=== PATIENT | male | born 1990 | race Caucasian/White ===

== ENCOUNTER 2023-10-03 05:39 | Emergency (ER) | payer OTHER, SELFPAY ==
[2023-10-03] VITALS (7 sets, daily range): BP systolic 124–154; BP diastolic 66–97; PULSE 72–84; RESP 15–16; TEMP 36.2–36.7; O2SAT 95–99; BMI 27.1
--- NOTE | 2023-10-03 06:09 | RAD_ITS ---
STUDY: X-RAY - RIGHT FEMUR REASON FOR STUDY: Male, 33 years old. ? osteo TECHNIQUE: 4 view(s) of the femur. COMPARISON: None. FINDINGS: Normal visualized femur. Soft tissue swelling. Linear lucencies are seen within the soft tissues. Possibility of necrotizing fasciitis should be ruled out. RAD/Femur Min 2 Views IMPRESSION: Soft tissue swelling with linear hypodensities in the soft tissues suggestive of possible necrotizing fasciitis. N.B. : The above Results were Read Back by Sebastián Martel MD to Stepan Chang DO, and understanding confirmed on 10/03/2023 08:04:40 (ET). Electronically Signed: Sebastián Martel MD at 8:05 EDT ,
[2023-10-03 06:43] LABS: Absolute Lymphocyte Count 0.92 X10^3/uL (0.83-4.51); Absolute Neutrophil Count 1.6 X10^3/uL (2.0-7.7); Basophil# 0.03 X10^3/uL; Eosinophil# 0.12 X10^3/uL; Eosinophils% 3.9 % (0-5); Hematocrit 44.3 % (40-54); Hemoglobin 15.1 g/dL (13.0-16.5); Lymphocyte # 0.92 X10^3/ul (0.83-4.51); Lymphocyte % 30.3 % (19-41); Mean Corp Hgb Conc 34.1 g/dL (32-36); Mean Corpuscular Hgb 31.4 pg (27.0-32.0); Mean Corpuscular Volume 92.1 fL (80-94); Mean Platelet Vol. 9.7 fl (6.2-12.0); Monocyte# 0.36 X10^3/uL; Monocyte% 11.8 % (0-10); NRBC Flagged by Analyzer 0 % (0-5); Neutrophil % 52.7 % (47-70); Platelet Count 207 K/mm3 (150-450); RBC Distribution Width CV 11.4 % (11.6-14.6); RBC Distribution Width SD 38.9 fl (35.1-43.9); Red Blood Count 4.81 M/mm3 (4.6-6.2)
[2023-10-03 06:51] LABS: Anion Gap 8 (5-15); BUN 13 mg/dL (7-18); BUN/Creat Ratio 11.9 RATIO (10-20); Calcium,Total 9.2 mg/dL (8.5-10.1); Chloride 105 mmol/L (98-107); Creatinine, Serum 1.09 mg/dL (0.70-1.30); EST Glomerular Filtration Rate 83 mL/min (>60); Est Glom Filt Rate - Afr Amer 100 mL/min (>60); Estimated Creatinine Clearance 108.94 ml/min; Glucose 101 mg/dL (74-106); Potassium 3.9 mmol/L (3.5-5.1); Sodium Level 139 mmol/L (136-145)
[2023-10-03 07:10] LABS: Lactic Acid 0.8 mmol/L (0.4-1.9)
--- NOTE | 2023-10-03 07:33 | EX.ED.DYSGE1 ---
HPI History of Present Illness Chief Complaint: Wound Check Informant: patient Narrative Narrative: Patient is a 33-year-old male with no significant past medical history. [place] and after doing so noticed a small lesion along his right posterior thigh. He states that the area began increasing in size and redness and a concern for infection so he went to an urgent care and was placed on Bactrim and Keflex. He states has been taking those for 3 days but despite doing so the redness and swelling has increased. He denies any fevers or chills or discharge from the wound but states with concern for worsening infection he comes in for evaluation [facility] Medical History no medical history no medical history Home Medications ?Medication ?Instructions ?Recorded ?Last Taken ?Type cephalexin 500 mg capsule 500 mg PO TID 10/03/23 Unknown History levofloxacin 500 mg tablet 500 mg PO DAILY 10 days #10 tabs 10/03/23 Unknown Rx sulfamethoxazole 800 1 tab PO BID 10/03/23 Unknown History mg-trimethoprim 160 mg tablet sulfamethoxazole 800 1 tab PO BID 7 days #14 tabs 10/03/23 Unknown Rx mg-trimethoprim 160 mg tablet (Bactrim DS) Allergy/AdvReac Type Severity Reaction Status Date / Time cefaclor (From [facility]) AdvReac Other Verified 10/03/23 05:42 Social History Smoking Status: Never smoker [facility] ED Constitutional Constitutional ED: Denies chills or fever(s) ENT ENT ED: Denies sore throat Cardiovascular Cardiovascular: Denies chest pain Respiratory/Chest Respiratory/Chest: Denies cough or dyspnea Gastrointestinal Gastrointestinal: Denies abdominal pain, diarrhea, nausea or vomiting Genitourinary Genitourinary ED: Denies dysuria Musculoskeletal Musculoskeletal: Reports other Details: Positive right thigh pain Integumentary Reports other Details: Positive redness right thigh Neurologic Neurologic: Denies headache(s) Hematologic/Lymphatic Hematologic/Lymphatic: Denies easy bleeding or easy bruising EXAM Physical Exam Const Vital Signs: 10/03/23 05:40 10/03/23 05:46 10/03/23 07:00 Temperature 97.6 F L 97.6 F L 97.1 F L Temperature Source Temporal Temporal Temporal Pulse Rate 79 79 74 Respiratory Rate 16 16 16 Blood Pressure 154/97 H 154/97 H 146/84 H Blood Pressure Mean 116 116 104 Pulse Ox 99 99 95 Oxygen Delivery Method Room Air Room Air Room Air 10/03/23 08:00 Temperature 97.4 F L Temperature Source Temporal Pulse Rate 78 Respiratory Rate 16 Blood Pressure 132/77 H Blood Pressure Mean 95 Pulse Ox 98 Oxygen Delivery Method Room Air Positive well nourished and well developed General Appearance ED: well developed HEENT HEENT Narrative: Normocephalic atraumatic Eyes PERRL and EOMs intact bilaterally Neck supple Resp normal respiratory effort and clear to auscultation bilaterally Cardio regular rate and regular rhythm Extremity Extremity Narrative: Right lower extremity is neurovascularly intact. Along the posterior aspect of the distal right thigh is a asymmetric area of erythema warmth and swelling approximately 3 x 3 cm in size with the center having an area of tissue breakdown. There is no active drainage or discharge or lymphangitic streaking No crepitance palpated Neuro oriented x3, CN's II-XII intact bilaterally and no sensory deficits noted Sensorium / Orientation: alert Motor Exam: strength 5/5 throughout Psych mental status grossly normal Skin Skin Narrative: Soft tissue change of the right posterior thigh as documented above MDM MDM MDM Narrative Medical decision making narrative: Patient presented to the ER hypertensive otherwise with stable vitals. He reported developing a lesion along his right thigh after being in [place]. Differential diagnosis is for insect bite versus allergic reaction versus cellulitis versus abscess. As he has been on antibiotics and still has worsening of symptoms there is concern for progression to systemic infection. Therefore basic blood work and an x-ray of the right leg were obtained. Labs show leukopenia pi?a at 3.0 and neutropenia at 1.6. Patient does not have any history immunosuppression or use of immunosuppressive drugs so therefore this drop is atypical. The x-ray read by the radiologist question potential free air which could be potentially necrotizing fasciitis. Patient blood cultures obtained and was started on vancomycin but a CT of the lower extremity will be obtained to check for true presence of air and necrotizing fasciitis. CT revealed no signs of necrotizing fasciitis. The case was discussed with the hospitalist/Dr. Best. She feels that with normal vitals and no systemic symptoms that patient can stop the Keflex and be transition to Levaquin but continue the Bactrim. She agrees that we can track the cultures as an outpatient initially and he can return if cultures are positive or symptoms worsen despite antibiotic therapy. This plan of care was discussed with the patient he is agreeable to it History & Record Review Discussion w/independent historian: Patient Lab Data Attestation: I reviewed the patient's lab results. Labs: Laboratory Results - last 24 hr 10/03/23 06:21 WBC 3.0 L RBC 4.81 Hgb 15.1 Hct 44.3 MCV 92.1 MCH 31.4 MCHC 34.1 RDW Std Deviation 38.9 RDW Coeff of Claribel 11.4 L Plt Count 207 MPV 9.7 Immature Gran % (Auto) 0.300 Neut % (Auto) 52.7 Lymph % (Auto) 30.3 Parke % (Auto) 11.8 H Eos % (Auto) 3.9 Baso % (Auto) 1.0 Absolute Neuts (auto) 1.6 L Absolute Lymphs (auto) 0.92 Nucleated RBC % 0 Sodium 139 Potassium 3.9 Chloride 105 Carbon Dioxide 26.0 Anion Gap 8 BUN 13 Creatinine 1.09 Estim Creat Clear Calc 108.94 Est GFR (MDRD) Af Amer 100 Est GFR (MDRD) Non-Af 83 BUN/Creatinine Ratio 11.9 Glucose 101 Lactic Acid 0.8 Calcium 9.2 C-React Prot Ext Range 43.70 H Radiography Diagnostic Testing: Clinical Impression(s) from Imaging Studies Femur X-Ray 10/03/23 06:09 IMPRESSION: Soft tissue swelling with linear hypodensities in the soft tissues suggestive of possible necrotizing fasciitis. N.B. : The above Results were Read Back by Sebastián Martel MD to Stepan Chang DO, and understanding confirmed on 10/03/2023 08:04:40 (ET). Electronically Signed: Sebastián Martel MD at 8:05 EDT , ADDENDUM: 10/03/23 0812 IMPRESSION: Soft tissue swelling with linear hypodensities in the soft tissues suggestive of possible necrotizing fasciitis. N.B. : The above Results were Read Back by Sebastián Martel MD to Stepan Chang DO, and understanding confirmed on 10/03/2023 08:04:40 (ET). Electronically Signed: Sebastián Martel MD at 8:05 EDT , Lower Extremity CT 10/03/23 08:15 IMPRESSION: There is no radiographic evidence for necrotizing fasciitis. The lucency seen on the plain radiograph represents the fatty planes within the muscle groups. Electronically Signed: Sebastián Martel MD at 8:33 EDT , X-ray of the right femur as interpreted by the emergency medicine physician reveals no retained foreign body or signs of osteomyelitis Discharge Plan Triage Chief Complaint: Wound Check ED Provider: Stepan Chang Dx/Rx/DC Orders Clinical Impression: Cellulitis of right thigh, Leukopenia, Neutropenia Instructions: Cellulitis Dc Prescriptions: New levofloxacin 500 mg tablet 500 mg PO DAILY 10 Days Qty: 10 0RF sulfamethoxazole-trimethoprim [Bactrim DS] 800-160 mg tablet 1 tab PO BID 7 Days Qty: 14 0RF No Action sulfamethoxazole-trimethoprim 800-160 mg tablet 1 tab PO BID cephalexin 500 mg capsule 500 mg PO TID Primary Care Provider: Gurjit Justin Referrals: Gurjit Justin, [Primary Care Provider] - Activity Restrictions/Additional Instructions: Please continue the Bactrim twice a day as directed but fill the new prescription so that you have enough medication to treat the infection for 10 days. Stop the Keflex/cephalexin and begin taking the Levaquin once a day as directed for improved infection control. If you have any further concerns or worsening of symptoms despite today's workup and treatment modification please return for repeat evaluation Print Language: Mauritian Disposition Disposition: Home, Self Care
--- NOTE | 2023-10-03 08:15 | CT_ITS ---
CT RIGHT LOWER EXTREMITY WITH 3-D IMAGING CLINICAL INDICATION: abnormal x-ray / ? Necrotizing fasciitis TECHNIQUE: Axial CT images of the RIGHT lower extremity was performed IV contrast material. Coronal and sagittal reformats were provided. The protocol utilizes one or more of the following dose reduction techniques: automated exposure control, adjustment of mA and/or kV according to patient size,and/or use of iterative reconstruction technique. RADIATION DOSAGE (If Supplied By Facility): CTDIvol = ( 15.84 ) mGy, DLP = ( 927.49 ) mGycm COMPARISON: Prior study dated: Prior radiographic imaging done earlier in the day. FINDINGS: Bones: Osseous structures are normal without evidence of fracture or dislocation. No lytic or blastic osseous masses. Soft Tissues: The deep soft tissue structures are unremarkable. Mild increased markings in the subcutaneous tissues overlying the lateral slightly posterior aspect of the proximal thigh suggestive of a inflammatory change. No focal abscess is seen. CT/Extremity Lower WITH Contrast IMPRESSION: There is no radiographic evidence for necrotizing fasciitis. The lucency seen on the plain radiograph represents the fatty planes within the muscle groups. Electronically Signed: Sebastián Martel MD at 8:33 EDT ,
[2023-10-03] MEDS: 0.9% Normal Saline (1000mL) 1,000 ML 999 ML IV (08:41)
[2023-10-03] MEDS: Vancomycin HCl 1,500 MG in 0.9% Normal Saline (500mL Bag) 500 ML 250 MG IV (08:52)
== END 2023-10-03 12:15 | disposition home or self-care (01) ==
PROVIDERS: Emergency Provider Emergency Medicine; PCP Student in an Organized Health Care Education/Training Program; Visit Provider Emergency Medicine
DX: L03.115 Cellulitis of right lower limb (principal); M72.6 Necrotizing fasciitis; D70.9 Neutropenia, unspecified
CPT/HCPCS: 73552; 73701; 80048; 83605; 85025; 86140; 87040; 99283; J7030; J7040; Q9967; A4216